=== PATIENT | male | born 1980 | race Caucasian/White ===

== ENCOUNTER 2018-12-07 19:44 | Emergency (ER) | payer OTHER ==
[2018-12-07 20:02] VITALS: BP 151/89
--- NOTE | 2018-12-07 20:10 | UC ---
Headache HPI - HPI Summary HPI Summary: C/O pain above the left eye. Sharp pain yesterday, more aching today. Noticed decreased sensation around the left eye today. - History Of Current Complaint Chief Complaint: UCGeneralIllness Stated Complaint: PAIN LEFT EYE/NUMBNESS SIDE OF FACE Time Seen by Provider: 12/07/18 20:00 Hx Obtained From: Patient Onset/Duration: Sudden Onset, Lasting Days - 1, Still Present Onset Of Symptoms: Sudden Initially Headache Was: Moderate Currently Pain Is: Moderate Pain Intensity: 4 Timing: Constant Character: Sharp - initially, Dull - now Location of Headache: Other: - above and around the left eye Aggravating Factor(s): Other - squinting or squeezing the eye shut Allevating Factor(s): Nothing Associated Signs And Symptoms: Positive: Negative - Allergies/Home Medications Allergies/Adverse Reactions: Allergies Allergy/AdvReac Type Severity Reaction Status Date / Time No Known Allergies Allergy Verified 12/07/18 19:56 Home Medications: Home Medications Benazepril HCl 40 mg PO DAILY 12/07/18 [History Confirmed 12/07/18] Cholecalciferol TAB* [Vitamin D TAB*] 1,000 unit PO BID 12/07/18 [History Confirmed 12/07/18] Chromium Picolinate 800 mcg PO DAILY 12/07/18 [History Confirmed 12/07/18] Famotidine TAB* [Pepcid 20 MG TAB*] 40 mg PO DAILY PRN 12/07/18 [History Confirmed 12/07/18] Lutein Blue 1 tab DAILY 12/07/18 [History Confirmed 12/07/18] Metoprolol Succinate XL TAB* [Toprol XL TAB*] 50 mg PO BEDTIME 12/07/18 [ History Confirmed 12/07/18] Multivitamins/Minerals TAB* [Theragran/minerals TAB*] 1 tab PO DAILY 12/07/18 [ History Confirmed 12/07/18] amLODIPine TAB* [Norvasc 5 mg TAB*] 5 mg PO BEDTIME 12/07/18 [History Confirmed 12/07/18] celeCOXIB CAP* [Celebrex CAP*] 100 mg PO BID PRN 12/07/18 [History Confirmed ] PMH/Surg Hx/FS Hx/Imm Hx Cardiovascular History: Hypertension GI/ History: Gastroesophageal Reflux - Surgical History Surgical History: Yes Surgery Procedure, Year, and Place: b/l knees as teenager - Family History Known Family History: Positive: Hypertension Negative: Cardiac Disease, Diabetes - Social History Occupation: Employed Full-time Lives: With Family Alcohol Use: None Substance Use Type: None Smoking Status (MU): Former Smoker Type: eCigarettes Review of Systems All Other Systems Reviewed And Are Negative: Yes Neurological: Positive: Headache - around the left eye, Numbness - around the left eye Physical Exam Triage Information Reviewed: Yes Appearance: Well-Appearing, Pain Distress - mild, Obese Vital Signs: Initial Vital Signs Temp 98.4 F 12/07/18 19:58 Pulse 103 12/07/18 19:58 Resp 18 12/07/18 19:58 BP 151/89 12/07/18 19:58 Pulse Ox 100 12/07/18 19:58 Vital Signs Reviewed: Yes Eyes: Positive: Conjunctiva Clear ENT: Positive: Pharynx normal, TMs normal Neck exam: Normal Respiratory Exam: Normal Cardiovascular Exam: Normal Musculoskeletal Exam: Normal Neurological: Positive: Other: - decreased sensation to pinprick around the left eye down onto the cheek. Not in an anatomic distribution. Left temporal artery normal pulsation and non-tender. Psychological Exam: Normal Skin Exam: Normal Diagnostics - Radiology No standard instances Radiology Interpretation Completed By: Radiologist Summary of Radiographic Findings: Normal CT head Headache Course/Dx - Differential Dx/Diagnosis Differential Diagnosis/HQI/PQRI: Sinus Headache, Temporal Arteritis, Tension Headache Provider Diagnosis: Headache, Numbness Discharge - Sign-Out/Discharge Documenting (check all that apply): Patient Departure All imaging exams completed and their final reports reviewed: Yes - Discharge Plan Condition: Stable Disposition: HOME Patient Education Materials: Paresthesia (ED) Referrals: Bita Malik MD [Primary Care Provider] - 2 Days (For elevated blood pressure) Additional Instructions: If you break out in a rash in the area, please get seen immediately for possible shingles. - Billing Disposition and Condition Condition: STABLE Disposition: Home
== END 2018-12-07 21:37 | disposition home or self-care (01) ==
LOC: UCCORT 19:44
DX: R51 Headache (principal); R20.0 Anesthesia of skin; H57.12 Ocular pain, left eye; I10 Essential (primary) hypertension; K21.9 Gastro-esophageal reflux disease without esophagitis; Z79.899 Other long term (current) drug therapy; Z87.891 Personal history of nicotine dependence
CPT/HCPCS: 70450; 99201; G0463

== ENCOUNTER 2019-06-08 13:32 | Emergency (ER) | payer OTHER ==
--- NOTE | 2019-06-08 13:43 | UC ---
Lower Extremity/Ankle HPI - HPI Summary HPI Summary: 38-year-old male comes in with a chief complaint of left ankle and foot pain. Yesterday morning he accidentally stepped off a curb and rolled his left ankle. He had pain right away but he has been able to bear weight with pain. He took an anti-inflammatory which decreased the pain also iced which helped. He has pain with range of motion but he has normal range of motion no complaint of any weakness or numbness. There is swelling and ecchymosis. - History of Current Complaint Stated Complaint: LEFT ANKLE INJURY Time Seen by Provider: 06/08/19 13:39 - Allergies/Home Medications Allergies/Adverse Reactions: Allergies Allergy/AdvReac Type Severity Reaction Status Date / Time No Known Allergies Allergy Verified 06/08/19 13:45 PMH/Surg Hx/FS Hx/Imm Hx Previously Healthy: Yes Cardiovascular History: Hypertension GI/ History: Gastroesophageal Reflux - Surgical History Surgical History: Yes Surgery Procedure, Year, and Place: b/l knees as teenager - Family History Known Family History: Positive: Hypertension Negative: Cardiac Disease, Diabetes - Social History Alcohol Use: None Substance Use Type: None Smoking Status (MU): Former Smoker Type: eCigarettes Review of Systems All Other Systems Reviewed And Are Negative: Yes Constitutional: Positive: Negative Skin: Positive: Bruising Eyes: Positive: Negative ENT: Positive: Negative Respiratory: Positive: Negative Cardiovascular: Positive: Negative Gastrointestinal: Positive: Negative Motor: Positive: Negative Neurovascular: Positive: Negative Musculoskeletal: Positive: Other: - SEE HPI Neurological: Positive: Negative Psychological: Positive: Negative Is Patient Immunocompromised?: No Physical Exam Triage Information Reviewed: Yes Appearance: Well-Appearing, No Pain Distress, Well-Nourished Vital Signs Reviewed: Yes Eye Exam: Normal Eyes: Positive: Conjunctiva Clear Neck: Positive: Supple Respiratory: Positive: No respiratory distress Musculoskeletal: Positive: Strength Intact, ROM Intact, Other: - Swelling and tenderness on the lateral left ankle. Is also swelling and tenderness down into the lateral and proximal dorsum of the left foot. Normal capillary refill normal sensation. No tenderness to palpation of the lower leg proximal to the ankle. Achilles tendon is nontender and intact. Psychological: Positive: Age Appropriate Behavior Skin: Positive: Other - Bruising and ecchymosis the left ankle Lower Extremity Course/Dx - Course Course Of Treatment: Gun Numberer: Latisha Noguera S, ([id number]) Orthotic Assistant: FAMILIA (FAMILIA) Report Date: 06/08/2019 13:41:00 Report Status: Final Start of Report Content Patient Name: ARNALDO OLSON Medical Record#: [id number] Ordering Physician: Arnaldo Painter MD Acct.#: [id number] : Age: 38 Sex: M Location: [facility] Exam Date: 06/08/19 1341 ADM Status: REG ER Order Information: FOOT LEFT 3+ VWS Accession Number: [id number] CPT: 76875 Indication: Left foot injury. 3 views of the left foot demonstrates fracture through the base of the fifth metatarsal. No significant displacement is noted. IMPRESSION: Fracture through the base of the fifth metatarsal. < Electronically signed by Latisha Noguera MD in OV> 06/08/191416 Dictated By: Latisha Noguera MD Dictated Date/Time: 06/08/191415 Transcribed Date/Time: 06/08/191415 Copy to: CC:Bita Malik MD; Arnaldo Painter MD Imaging - [facility] [address] [address] ph [phone]) ph [phone]) ph ([phone]) End of Report Content Gun Numberer: Latisha Noguera S, ([id number]) Orthotic Assistant: FAMILIA (NUANCE) Report Date: 06/08/2019 13:39:00 Report Status: Final Start of Report Content Patient Name: ARNALDO OLSON Medical Record#: [id number] Ordering Physician: Arnaldo Painter MD Acct.#: [id number] : Age: 38 Sex: M Location: [facility] Exam Date: 06/08/19 133 ADM Status: REG ER Order Information: ANKLE LEFT 3+VWS Accession Number: [id number] CPT: 70762 Indication: Left ankle injury. 3 views of the left ankle demonstrates no fracture. The tibia or talus. There is a fracture at the base of the fifth metatarsal. Soft tissue swelling is laterally noted. IMPRESSION: Fracture base of the fifth metatarsal. Soft tissue swelling is noted. <Electronically signed by Latisha Noguera MD in OV> 06/08/191415 Dictated By: Latisha Noguera MD Dictated Date/ Time: 06/08/191414 Transcribed Date/Time: 06/08/191414 Copy to: CC:Bita Malik MD; Arnaldo Painter MD Imaging - [facility] Imaging - [facility] [address] [address] ph [phone] ph ([phone]) ph ([phone]) End of Report Content I discussed the x-ray results with the patient. Due to the fifth metatarsal fracture patient placed in an Puneet wrap and a cam boot with crutches with nonweightbearing. After placement of the cam boot by nursing patient neurovascular intact. Plan is to follow-up with orthopedics. - Differential Dx/Diagnosis Provider Diagnosis: Fracture of fifth metatarsal bone of left foot, Left ankle sprain Discharge ED - Sign-Out/Discharge Documenting (check all that apply): Patient Departure All imaging exams completed and their final reports reviewed: Yes - Discharge Plan Condition: Stable Disposition: HOME Patient Education Materials: Foot Fracture in Adults (ED) Forms: *Work Release Referrals: Bita Malik MD [Primary Care Provider] - Pavan Schmidt MD [Medical Doctor] - Additional Instructions: FOLLOW UP WITH DR SCHMIDT, ORTHOPEDICS. GET REEVALUATED SOONER IF NOT IMPROVING OR YOUR CONDITION WORSENS OR ANY QUESTIONS OR CONCERNS - Billing Disposition and Condition Condition: STABLE Disposition: Home
[2019-06-08 13:45] VITALS: BP 159/106
== END 2019-06-08 14:50 | disposition home or self-care (01) ==
LOC: UCCORT 13:32
DX: S92.352A Displaced fracture of fifth metatarsal bone, left foot, initial encounter for closed fracture (principal); S93.402A Sprain of unspecified ligament of left ankle, initial encounter; I10 Essential (primary) hypertension; Z87.891 Personal history of nicotine dependence; W22.8XXA Striking against or struck by other objects, initial encounter; Y92.9 Unspecified place or not applicable
CPT/HCPCS: 99212; G0463

== ENCOUNTER 2019-07-11 16:23 | Emergency (ER) | payer OTHER ==
--- OUTSIDE RECORDS SUMMARY | 2019-07-11 16:32 | XMS REPORT | Continuity of Care Document ---
:1980 External Reference #:[id number] Author Name Pavan Schmidt MD (transmitted by agent of provider Aliyah Dooley) Address [address] [place] [phone] Care Team Providers Name Role Phone Bita Malik M.D. 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 Medicine Problems Description No Information Available Social History Type Date Description Comments Sex Unknown ETOH Use Rarely consumes alcohol Tobacco Use Start: Unknown End: Patient is a former smoker Unknown Recreational Drug Use Denies Drug Use Exercise Type/Frequency Exercises regularly walks daily Allergies, Adverse Reactions, Alerts Description No Known Drug Allergies Medications Active Medications SIG Qnty Indications Ordering Provider Date Celecoxib take one capsule 60caps Pavan Schmidt, 06/10/2019 100mg by mouth twice MD Capsules daily as needed Post-Op Shoe For Left 1units S92.355A Pavan Schmidt, 06/10/2019 Foot Fracture S92.355 Benazepril HCL 1 by mouth every Unknown 40mg day Tablets Metoprolol Succinate 1 by mouth every Unknown ER day 50mg Tablets ER 24HR Famotidine 1 by mouth every Unknown 40mg Tablets day as needed Chromium Picolinate 1 tab by mouth Unknown daily 1000mcg Tablets Vitamin D 3 2000 Iu 1 tab by mouth Unknown twice daily Multi Vitamin Mens 1 by mouth every Unknown day Tablets Immunizations Description No Information Available Vital Signs Date Vital Result Comment 06/10/2019 10:00am Heart Rate 91 /min BP Systolic Sitting 160 mmHg BP Diastolic Sitting 120 mmHg Respiratory Rate 16 /min Pain Level 6 O2 % BldC Oximetry 98 % Results Description No Information Available Procedures Description No Information Available Medical Devices Description No Information Available Encounters Description No Information Available Assessments Date Code Description Provider 06/10/2019 S92.355A Nondisplaced fracture of fifth metatarsal Pavan Schmidt MD bone, left foot, initial encounter for closed fracture Plan of Treatment Future Appointment(s):07/04/2019 9:15 am - Pavan Schmidt MD [facility]/15/2019 - Pavan Schmidt, MDS92.355A Nondisplaced fracture of fifth metatarsal bone, left foot, initial encounter for closed fractureNew Medication:Post-Op Shoe For Left Foot Fracture S92.355 -Comments: ice/elevate , post-op shoeFollow up:Follow up: 3-4 weeks Functional Status Description No Information Available Mental Status Description No Information Available Referrals Description No Information Available
--- OUTSIDE RECORDS SUMMARY | 2019-07-11 16:32 | XMS REPORT | Continuity of Care Document ---
:1980 External Reference #:[id number] Author Name Pavan Schmidt MD (transmitted by agent of provider Maninder Doe) Address [address] [place] [phone] Care Team Providers Name Role Phone Bita Malik M.D. 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 [phone] Medicine Problems Description No Information Available Social History Type Date Description Comments Sex Unknown ETOH Use Rarely consumes alcohol Tobacco Use Start: Unknown End: Patient is a former smoker Unknown Recreational Drug Use Denies Drug Use Smoking Status Reviewed: 07/04/19 Patient is a former smoker Exercise Type/Frequency Exercises regularly walks daily Allergies, Adverse Reactions, Alerts Description No Known Drug Allergies Medications Active Medications SIG Qnty Indications Ordering Provider Date Knee Scooter For Left 1units Pavan Schmidt, 06/12/2019 Foot Fracture S92.355 Celecoxib take one capsule 60caps Pavan Schmidt, [...] Available Vital Signs Date Vital Result Comment 07/04/2019 9:16am Height 66 inches 5'6" Weight 214.50 lb Heart Rate 102 /min Respiratory Rate 16 /min Pain Level 0 O2 % BldC Oximetry 98 % BMI (Body Mass Index) 34.6 kg/m2 06/10/2019 10:00am Heart Rate 91 /min BP Systolic Sitting 160 mmHg BP Diastolic Sitting 120 mmHg Respiratory Rate 16 /min Pain Level 6 O2 % BldC Oximetry 98 % Results Description No Information Available Procedures Description No Information Available Medical Devices Description No Information Available Encounters Type Date Location Provider Dx Diagnosis Office Visit 06/10/2019 [facility] Pavan Schmidt, S92.355A Nondisp fx of 10:00a at [place] fifth metatarsal bone, left foot, init Assessments Date Code Description Provider 07/04/2019 S92.355D Nondisplaced fracture of fifth metatarsal Pavan Schmidt MD bone, left foot, subsequent encounter for fracture with routine healing 06/10/2019 S92.355A Nondisplaced fracture of fifth metatarsal Pavan Schmidt MD bone, left foot, initial encounter for closed fracture Plan of Treatment Future Appointment(s):08/01/2019 9:00 am - Pavan Schmidt MD at [facility]/08/2019 - Pavan Schmidt MDS92.355D Nondisplaced fracture of fifth metatarsal bone, left foot, subsequent encounter for fracture with routine healingNew Xrays:Foot Left 3+ VWS, Ordered: 07/04/19Follow up: Follow up: 4-6 weeks Functional Status Description No Information Available Mental Status Description No Information Available Referrals Description No Information Available
[2019-07-11] MEDS ORDERED: Ondansetron ODT TAB* 4 MG PO ONE (18:17)
--- NOTE | 2019-07-11 18:22 | UC ---
Dizzy HPI HPI Summary: 38 year old male presents with a complaint of a second episode over the past two days. First episode occurred two days ago upon awakening, resolved on it's own. Today around 3 pm he was bending over his freezer when sx occurred again. Some nausea, no vomiting. Denies associated headache, fever, visual disturbance , focal weakness nor slurred speech. - History Of Current Complaint Chief Complaint: UCGeneralIllness Stated Complaint: DIZZINESS, NAUSEA Time Seen by Provider: 07/11/19 18:07 Hx Obtained From: Patient Onset/Duration: Sudden Onset, Lasting Days - second episode over the past two days. Timing: Minutes Pain Intensity: 0 Alleviating Factor(s): Nothing Associated Signs And Symptoms: Positive: Nausea, Unsteady Gait. Negative: Vomiting, Diaphoresis, Tinnitus, Chest Pain, SOB, Palpitations, Visual Changes - Allergies/Home Medications Allergies/Adverse Reactions: Allergies Allergy/AdvReac Type Severity Reaction Status Date / Time No Known Allergies Allergy Verified 07/11/19 16:58 PMH/Surg Hx/FS Hx/Imm Hx Previously Healthy: Yes Cardiovascular History: Hypertension - Surgical History Surgical History: Yes Surgery Procedure, Year, and Place: b/l knees as teenager - Family History Known Family History: Positive: Hypertension Negative: Cardiac Disease, Diabetes - Social History Alcohol Use: Rare Substance Use Type: None Smoking Status (MU): Former Smoker Type: eCigarettes Amount Used/How Often: 3 mg per day Length of Time of Smoking/Using Tobacco: 8 yrs Review of Systems All Other Systems Reviewed And Are Negative: Yes Constitutional: Positive: Negative Skin: Positive: Negative Eyes: Positive: Other - room spinning. Negative: Blurred Vision, Diplopia ENT: Negative: Epistaxis, Sore Throat, Ear Ache, Nasal Discharge, Sinus Congestion, Sinus Pain/Tenderness Respiratory: Negative: Shortness Of Breath, Cough Cardiovascular: Negative: Palpitations, Chest Pain Gastrointestinal: Positive: Nausea. Negative: Abdominal Pain, Vomiting, Diarrhea Genitourinary: Positive: Negative Motor: Positive: Negative Neurovascular: Positive: Negative Musculoskeletal: Positive: Negative Neurological: Positive: Negative Psychological: Positive: Negative Is Patient Immunocompromised?: No Physical Exam Triage Information Reviewed: Yes Appearance: Well-Appearing Vital Signs: Initial Vital Signs Temp 97.9 F 07/11/19 17:01 Pulse 95 07/11/19 17:01 Resp 20 07/11/19 17:01 BP 150/98 07/11/19 17:01 Pulse Ox 100 07/11/19 17:01 Vital Signs Reviewed: Yes Eyes: Positive: Other: - no nystagmus ENT: Positive: Pharynx normal, TMs normal. Negative: Nasal congestion, Nasal drainage, Tonsillar swelling Neck: Positive: Supple, Nontender, No Lymphadenopathy, Other: - no carotid bruits Respiratory: Positive: Lungs clear, Normal breath sounds. Negative: Crackles, Rhonchi Cardiovascular: Positive: RRR, No Murmur, Pulses Normal, Brisk Capillary Refill Abdomen Description: Positive: Nontender, Soft Musculoskeletal: Positive: Strength Intact, ROM Intact, No Edema Neurological: Positive: Alert, Muscle Tone Normal, Other: - strenght equal bilat UE. DTR +2/4 bilat UE. CN II-XII intact. No drift no deficit. Normal rapid hand movement bilat. Sensation intact to fine touch bilat UE and LE. Psychological Exam: Normal Skin Exam: Normal Dizzy Course/Dx - Course Course Of Treatment: Initially he felt improvement after Zofran, then noted recurrence of dizziness about 30 minutes after taking the medication. Given meclizine due to recurrence of sx. Re-evaluation after 30 min and sx completely resolved. - Differential Dx/Diagnosis Provider Diagnosis: Benign positional vertigo Discharge ED - Sign-Out/Discharge Documenting (check all that apply): Patient Departure All imaging exams completed and their final reports reviewed: Yes - Discharge Plan Condition: Stable Disposition: HOME Prescriptions: Meclizine TAB* [Antivert 12.5 TAB*] 25 mg PO Q6H PRN #30 tab PRN Reason: Dizziness Patient Education Materials: Vertigo (ED) Referrals: Bita Malik MD [Primary Care Provider] - Additional Instructions: Drink plenty of fluids, take meclizine as needed for dizziness. Follow-up with your primary care physician if your symptoms persist or worsen. - Billing Disposition and Condition Condition: STABLE Disposition: Home
[2019-07-11] MEDS ORDERED: Meclizine TAB* 12.5 MG PO ONE (19:12)
[2019-07-11 19:27] VITALS: BP 141/94
== END 2019-07-11 20:00 | disposition home or self-care (01) ==
LOC: UCCORT 16:23
DX: H81.10 Benign paroxysmal vertigo, unspecified ear (principal); I10 Essential (primary) hypertension; Z87.891 Personal history of nicotine dependence
CPT/HCPCS: 99212; A9270-GY; G0463

== ENCOUNTER 2019-11-11 18:40 | Emergency (ER) | payer OTHER ==
--- OUTSIDE RECORDS SUMMARY | 2019-11-11 18:48 | XMS REPORT | Continuity of Care Document ---
:1980 External Reference #:[id number] Author Name Pavan Schmidt MD Address [address] [place] [address] Care Team Providers Name Role Phone Bita Malik M.D. 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 [phone] Medicine Problems Description No Information Available Social History Type Date Description Comments Sex Unknown ETOH Use Rarely consumes alcohol Tobacco Use Start: Unknown End: Patient is a former smoker Unknown Recreational Drug Use Denies Drug Use Smoking Status Reviewed: 11/06/19 Patient is a former smoker Exercise Type/Frequency Exercises regularly walks daily Allergies, Adverse Reactions, Alerts Description No Known Drug Allergies Medications Active Medications SIG Qnty Indications Ordering Provider Date Knee Scooter For Left 1units Pavan Schmidt, 06/12/2019 Foot Fracture S92.355 Celecoxib take one capsule 60caps Pavan Schmidt, 06/10/2019 100mg by mouth twice MD Capsules daily as needed Post-Op Shoe For Left 1units S92.355A Pvaan Schmidt, 06/10/2019 Foot Fracture S92.355 Benazepril HCL [...] Available Vital Signs Date Vital Result Comment 11/06/2019 10:59am Height 66 inches 5'6" Weight 214.00 lb Heart Rate 120 /min BP Systolic Sitting 144 mmHg BP Diastolic Sitting 96 mmHg Respiratory Rate 16 /min Pain Level 0 O2 % BldC Oximetry 97 % BMI (Body Mass Index) 34.5 kg/m2 08/28/2019 10:31am Height 66 inches 5'6" Weight 214.00 lb Heart Rate 88 /min Respiratory Rate 16 /min Body Temperature 98.6 F Pain Level 1 O2 % BldC Oximetry 97 % BMI (Body Mass Index) 34.5 kg/m2 Results Description No Information Available Procedures Date Code Description Status 08/28/2019 23114 Rad Exam; Foot Comp Completed 07/04/2019 25566 Rad Exam; Foot Comp Completed Medical Devices Description No Information Available Encounters Type Date Location Provider Dx Diagnosis Office Visit 11/06/2019 [place] Mona Schmidt, S92.355K Nondisp fx of 5th 10:45a at [place] metatarsal bone, l ft, 7thK Office Visit 08/28/2019 [place] Mona Schmidt S92.355D Nondisp fx of 5th 10:30a at [place] MD colbyal bone, l ft, 7thD Office Visit 07/04/2019 [place] Mona Schmidt S92.355D Nondisp fx of 5th 9:15a at [place] metatarsal bone, l ft, 7thD Office Visit 06/10/2019 [place] Mona Schmidt S92.355A Nondisp fx of 10:00a at [facility] fifth metatarsal bone, left foot, init Assessments Date Code Description Provider 11/06/2019 S92.355K Nondisplaced fracture of fifth metatarsal MD venkat Chowdary, left foot, subsequent encounter for fracture with nonunion 08/28/2019 S92.355D Nondisplaced fracture of fifth metatarsal MD venkat Chowdary, left foot, subsequent encounter for fracture with routine healing 07/04/2019 S92.355D Nondisplaced fracture of fifth metatarsal MD venkat Chowdary, left foot, subsequent encounter for fracture with routine healing 06/10/2019 S92.355A Nondisplaced fracture of fifth metatarsal MD venkat Chowdary, left foot, initial encounter for closed fracture Plan of Treatment 11/06/2019 - Pavan Schmidt, MDS92.355K Nondisplaced fracture of fifth metatarsal bone, left foot, subsequent encounter for fracture with nonunionNew Xrays:CT Extremity Lower Left Wo, Ordered: 11/06/19Follow up:Follow up: after testing is completed Functional Status Description No Information Available Mental Status Description No Information Available Referrals Description No Information Available
[2019-11-11 18:51] VITALS: BP 177/114
--- NOTE | 2019-11-11 19:02 | UC ---
Abdominal Pain Male HPI - HPI Summary HPI Summary: 39-year-old male presents with complaints of 3 days of right upper quadrant pain. States pain has been constant. Nonradiating. Describes as a sharp pins and needle sensation. States worsens with cough or if he strains to have a bowel movement. Denies fever, chills, nausea, vomiting, diarrhea, blood in stool, melena, dysuria, frequency, urgency, or hematuria. - History of Current Complaint Chief Complaint: UCGeneralIllness Stated Complaint: RIGHT SIDED PAIN Time Seen by Provider: 11/11/19 18:48 Hx Obtained From: Patient Pain Intensity: 7 - Allergies/Home Medications Allergies/Adverse Reactions: Allergies Allergy/AdvReac Type Severity Reaction Status Date / Time No Known Allergies Allergy Verified 11/11/19 18:51 Home Medications: Home Medications Benazepril HCl 40 mg PO DAILY 12/07/18 [History Confirmed 11/11/19] Cholecalciferol TAB* [Vitamin D TAB*] 1,000 unit PO BID 12/07/18 [History Confirmed 11/11/19] Chromium Picolinate 800 mcg PO DAILY 12/07/18 [History Confirmed 11/11/19] Famotidine TAB* [Pepcid 20 MG TAB*] 40 mg PO DAILY PRN 12/07/18 [History Confirmed 11/11/19] Metoprolol Succinate XL TAB* [Toprol XL TAB*] 50 mg PO BEDTIME 12/07/18 [ History Confirmed 11/11/19] Multivitamins/Minerals TAB* [Theragran/minerals TAB*] 1 tab PO DAILY 12/07/18 [ History Confirmed 11/11/19] celeCOXIB CAP* [Celebrex CAP*] 100 mg PO BID PRN 12/07/18 [History Confirmed ] Meclizine TAB* [Antivert 12.5 TAB*] 25 mg PO Q6H PRN #30 tab 07/11/19 [Rx Confirmed 11/11/19] PMH/Surg Hx/FS Hx/Imm Hx Cardiovascular History: Hypertension GI/ History: Gastroesophageal Reflux - Surgical History Surgical History: Yes Surgery Procedure, Year, and Place: b/l knees as teenager - Family History Known Family History: Positive: Hypertension Negative: Cardiac Disease, Diabetes - Social History Occupation: Employed Full-time Lives: With Family Alcohol Use: Rare Substance Use Type: None Smoking Status (MU): Former Smoker Type: eCigarettes Amount Used/How Often: 3 mg per day Length of Time of Smoking/Using Tobacco: 8 yrs Review of Systems All Other Systems Reviewed And Are Negative: Yes Constitutional: Negative: Fever, Chills Skin: Negative: Rash Respiratory: Positive: Negative Cardiovascular: Positive: Negative Gastrointestinal: Positive: Abdominal Pain. Negative: Vomiting, Diarrhea, Nausea Genitourinary: Negative: Dysuria, Hematuria, Frequency, Urgency Musculoskeletal: Positive: Negative Neurological/Mental Status: Positive: Negative Is Patient Immunocompromised?: No Physical Exam - Summary Physical Exam Summary: GENERAL APPEARANCE: Alert and cooperative obese adult male who appears to be in no acute distress. CARDIAC: Normal S1 and S2. No S3, S4 or murmurs. Rhythm is regular. There is no peripheral edema, cyanosis or pallor. Extremities are warm and well perfused. Capillary refill is less than 2 seconds. Peripheral pulses intact. LUNGS: Clear to auscultation without rales, rhonchi, wheezing or diminished breath sounds. ABDOMEN: Positive bowel sounds. Soft, nondistended. Tenderness to RUQ without guarding or rebound. No masses or hepatosplenomegally. MUSKULOSKELETAL: ROM intact to all extremities. No joint erythema or tenderness. Normal muscular development. Normal gait. SKIN: Skin normal color, texture and turgor with no lesions or eruptions. Triage Information Reviewed: Yes Vital Signs: Initial Vital Signs Temp 98.6 F 11/11/19 18:49 Pulse 116 11/11/19 18:49 Resp 20 11/11/19 18:49 BP 177/114 11/11/19 18:49 Pulse Ox 99 11/11/19 18:49 Vital Signs Reviewed: Yes Abd Pain Male Course/Dx - Course Course Of Treatment: 39-year-old male presents with complaints of 3 days of right upper quadrant pain. States pain has been constant. Nonradiating. Describes as a sharp pins and needle sensation. States worsens with cough or if he strains to have a bowel movement. Denies fever, chills, nausea, vomiting, diarrhea, blood in stool, melena, dysuria, frequency, urgency, or hematuria. Afebrile. Hypertensive and tachycardic otherwise vital signs are stable. Patient had positive bowel sounds, soft, nondistended abdomen, tenderness to RUQ without guarding or rebound, no masses or hepatosplenomegally. Discussed with patient that with the right upper quadrant pain I cannot rule out the possibility of an urgent conditions such as gallbladder disease or pancreatitis and recommend that he be further evaluated in the emergency room at this time. Patient is agreeable to this and is electing to go by private vehicle. - Differential Dx/Clinical Impression Differential Diagnosis/HQI/PQRI: Gall Bladder Disease, Pancreatitis, Peptic Ulcer Disease, Renal Colic Provider Diagnosis: RUQ abdominal pain Discharge ED - Sign-Out/Discharge Documenting (check all that apply): Patient Departure All imaging exams completed and their final reports reviewed: No Studies - Discharge Plan Condition: Stable Disposition: HOME-RECOMMEND TO ED Referrals: Bita Malik MD [Primary Care Provider] - Additional Instructions: With your right upper quadrant pain going to recommend that you be evaluated in the emergency room at this time as we do not have the ability to fully assess your pain at this facility. Please go directly to the emergency room from here. Do not eat or drink anything before being evaluated in the emergency room. - Billing Disposition and Condition Condition: STABLE Disposition: Home-Recommend to ED
== END 2019-11-11 19:10 | disposition home health service (06) ==
LOC: UCCORT 18:40
DX: R10.11 Right upper quadrant pain (principal); K21.9 Gastro-esophageal reflux disease without esophagitis; I10 Essential (primary) hypertension; Z87.891 Personal history of nicotine dependence; Z79.899 Other long term (current) drug therapy
CPT/HCPCS: 99212; G0463